=== PATIENT | female | born 1970 | race Caucasian/White ===

== ENCOUNTER 2016-03-17 16:31 | Day surgery (SDC) | payer BC ==
[~2016-03-17] VITALS: Ht 157.5 cm; Wt 76.8 kg
[2016-03-17] MEDS ORDERED: FLOMAX 0.40.4 MG/CAP PO (16:50)
[2016-03-17] MEDS ORDERED: NORCO 325 MG-51 TAB PO (16:50)
[2016-03-17] MEDS ORDERED: ULTRAM 50MG TAB50 MG PO (16:51)
[2016-03-17] MEDS ORDERED: AZO-CRANBERRY450 MG PO (16:51)
[2016-03-17] MEDS ORDERED: FLEXERIL5 MG PO (16:51)
[2016-03-17 17:16] VITALS: BP 148/105; PULSE 122; TEMP 97.5
[2016-03-17 18:47] VITALS: BP 133/81; PULSE 81; TEMP 98.9
[2016-03-17 19:02] VITALS: BP 133/62; PULSE 80; TEMP 98.9
[2016-03-17 19:17] VITALS: BP 132/85; PULSE 77; TEMP 99.1
[2016-03-17 19:32] VITALS: BP 121/81; PULSE 79; TEMP 99
[2016-03-17 20:02] VITALS: BP 120/80; PULSE 78; TEMP 98.9
== END 2016-03-17 20:24 | disposition home or self-care (01) ==
LOC: SDCO 16:31 → JCC 18:58 → SDCO 20:24
DX: N20.1 Calculus of ureter (principal); R93.41 Abnormal radiologic findings on diagnostic imaging of renal pelvis, ureter, or bladder
CPT/HCPCS: OP; C1769; C2617; J0690; J2704; J3010; J7120; Q9967